=== PATIENT | female | born 1975 | race Caucasian/White ===

== ENCOUNTER → 2016-12-02 | Outpatient (CLI) | payer OTHER ==
[~2016-12-02] MED LIST: NO REGULAR MEDS
== END ==
LOC: NEU 09:05
PROVIDERS: ATTEND Nurse Practitioner Family
DX: G56.03 Carpal tunnel syndrome, bilateral upper limbs (principal)
CPT/HCPCS: 95886; 95911

== ENCOUNTER 2016-12-14 17:11 | Emergency (ER) | payer OTHER ==
[~2016-12-14] VITALS: Ht 157.5 cm; Wt 130.2 kg
[~2016-12-14 17:11] MED LIST changes: +ACET-2723 PO; +CITA40TA6 PO; +HUM10VIA3 SQ; +LEVO75TA10 PO; +LISI10TA7 PO; +NAPR220T61 PO; +SIMV20TA6 PO; +UBID100C10 PO
[2016-12-14 17:13] VITALS: Ht 157.5 cm; Wt 130.2 kg
--- OUTSIDE RECORDS SUMMARY | 2016-12-14 17:15 | XMS REPORT ---
Author Author Evelyn Sommers Organization [employer] Address Unknown Phone Unavailable Care Team Providers Care Planning Director Name Role Phone Evelyn Sommers CP Unavailable Allergies No Known Allergies Problems Problem Type Condition Code Onset Dates Condition Status Assessment Mixed hyperlipidemia E78.2 Active Assessment Hypothyroidism, unspecified E03.9 Active Problem Type 2 diabetes mellitus without complications E11.9 Active Problem Depressive disorder, not elsewhere classified 311 Active Problem Other specified diabetes mellitus without complications E13.9 Active Problem DM w/o complication type II E11.9 Active Assessment DM w/o complication type II, uncontrolled E11.65 Active Problem Allergic rhinitis 477.9 Active Problem Hypothyroidism E03.9 Active Medications Medication Code System Code Instructions Start Date End Date Status Dosage Fish Oil + D3 [facility] [address] . Orally Once a a day 1 capsule Humalog Mix 75/25 [facility] [address]-81 (75-25) 100 UNIT/ML Subcutaneous March 11, 2016 as directed Citalopram Hydrobromide [facility] [address]-41 40 MG Orally Once a day Aug 13, 2015 1 tablet Tylenol 8 Hour [facility] [address]-35 500 mg Orally BID prn 2 pills AM & PM Loratadine [facility] [address]-59 10 MG Orally Once a day 1 tablet in the morning GlipiZIDE [facility] 42253757215 5 TAKE ONE TABLET BY MOUTH TWICE A DAY Lisinopril [facility] [address]-64 10 MG Orally Once a day 1 tablet in the morning Levothyroxine Sodium [facility] [address]-53 75 MCG Orally Once a day Jun 07, 2015 1 tablet on an empty stomach in the morning Procedures Procedure Coding System Code Date COMPREHENSIVE METABOLIC PANEL CPT-4 70742 Jun 22, 2016 LIPID PANEL CPT-4 40278 Jun 22, 2016 HEMOGLOBIN A1C, IN HOUSE CPT-4 53077 Jun 22, 2016 T4 FREE CPT-4 89364 Jun 22, 2016 TSH CPT-4 55614 Jun 22, 2016 Results No Known Results Summary Purpose [employer] Submission
--- OUTSIDE RECORDS SUMMARY | 2016-12-14 17:15 | XMS REPORT ---
Author Surekha Cutler [employer] Address Unknown Phone Unavailable Care Team Providers Care Page Makeup System Operator Name Role Phone Surekha Álvarez CP Unavailable Allergies, Adverse Reactions, Alerts Substance Reaction Event Type Sulfa hives Drug Allergy latex rash Non Drug Allergy Problems Problem Type Condition Code Onset Dates Condition Status Problem Depressive disorder, not elsewhere classified 311 Active Problem Allergic rhinitis 477.9 Active Problem Diabetes Mellitus Type 2, not stated as uncontrolled 250.00 Active Assessment Hypothyroidism, unspecified E03.9 Active Problem Hypothyroid 244.9 Active Assessment Diabetes Mellitus Type 2, not stated as uncontrolled 250.00 Active Medications Medication Code System Code Instructions Start Date End Date Status Dosage Tylenol 8 Hour [facility] [address]-99 500 mg Orally BID 2 pills AM & PM Levothyroxine Sodium [facility] [address]-25 75 MCG Orally Once a day Jun 07, 2015 1 tablet on an empty stomach in the morning Loratadine [facility] [address]-88 10 MG Orally Once a day 1 tablet in the morning Lisinopril [facility] [address]-87 10 MG Orally Once a day 1 tablet in the morning Tradjenta [facility] [address]-39 5 MG Orally Once a day May 08, 2015 1 tablet Levemir Flexpen [facility] [address]-91 100 UNIT/ML Subcutaneous at Jun 07, 2015 10 units for a week then 15 units Citalopram & Diet Manage Prod NDC 0 10 MG Orally once a day 40 mg Procedures Procedure Coding System Code Date OFFICE VISIT, EST-LOW COMPLEXITY (15 MIN.) CPT-4 29903 Jun 06, 2015 HEMOGLOBIN A1C, IN HOUSE CPT-4 71906 Jun 06, 2015 Vital Signs Date/Time: Jun 06, 2015 Height 61 in Weight 258 lbs Temperature 98.7 F Blood Pressure Diastolic 80 mm Hg Blood Pressure Systolic 124 mm Hg Cardiac Monitoring Heart Rate 88 /min BMI 48.74 Index Respiratory Rate 20 /min Results Name Result Date Reference Range Unit Abnormality Flag In House HB A1c Summary Purpose [employer] Submission
--- OUTSIDE RECORDS SUMMARY | 2016-12-14 17:15 | XMS REPORT ---
Author Author Janina Carrillo Organization [employer] Address Unknown Phone Unavailable Care Team Providers Care Harvest Supervisor Name Role Phone Janina Carrillo CP Unavailable Allergies, Adverse Reactions, Alerts Substance Reaction Event Type Sulfa hives Drug Allergy Problems Problem Type Condition ICD-9 Code Onset Dates Condition Status Problem Depressive disorder, not elsewhere classified 311 Active Problem Allergic rhinitis 477.9 Active Problem Diabetes Mellitus Type 2, not stated as uncontrolled 250.00 Active Problem Hypothyroid 244.9 Active Assessment Diabetes Mellitus Type 2, not stated as uncontrolled 250.00 Active Medications Medication Code System Code Instructions Start Date End Date Status Dosage Tylenol 8 Hour [facility] [address]-03 500 mg Orally BID 2 pills AM & PM Citalopram & Diet Manage Prod NDC 0 10 MG Orally once a day 40 mg immodium NDC 0 Oral 6 per day 1 tab Diflucan [facility] [address]-26 150 MG Orally Once a day January 31, 2015 February 01, 2015 1 tablet Loratadine [facility] [address]-61 10 MG Orally Once a day 1 tablet in the morning [place]alimar Thyroid [facility] [address]-52 60 MG Orally Once a day 1 tablet in the morning Lisinopril [facility] [address]-05 10 MG Orally Once a day 1 tablet in the morning Metformin HCl [facility] [address]-53 500 MG Orally Twice a day January 31, 2015 2 tablet with meals Procedures Procedure Coding System Code Date OFFICE VISIT, EST-LOW COMPLEXITY (15 MIN.) CPT-4 59002 February 18, 2015 GLUCOSE FINGERSTICK, IN HOUSE CPT-4 61525 February 18, 2015 Vital Signs Date/Time: February 18, 2015 Height 61 in Weight 254.5 lbs Temperature 98.6 F Blood Pressure Diastolic 78 mm Hg Blood Pressure Systolic 124 mm Hg Cardiac Monitoring Heart Rate 72 /min BMI 48.08 Index Respiratory Rate 16 /min Results Name Result Date Reference Range Unit Abnormality Flag In House Hemocue Glucose Analysis, fingerstick Summary Purpose [employer] Submission
--- OUTSIDE RECORDS SUMMARY | 2016-12-14 17:15 | XMS REPORT ---
Author Author Evelyn Sommers Organization [employer] Address Unknown Phone Unavailable Care Team Providers Care Fur Finisher Tailor Name Role Phone Evelyn Sommers CP Unavailable Allergies No Known Allergies Problems Problem Type Condition Code Onset Dates Condition Status Problem Depressive disorder, not elsewhere classified 311 Active Problem Allergic rhinitis 477.9 Active Problem Type 2 diabetes mellitus without complications E11.9 Active Problem Hypothyroidism E03.9 Active Problem DM w/o complication type II E11.9 Active Medications No Known Medications Results No Known Results Summary Purpose [employer] Submission
--- OUTSIDE RECORDS SUMMARY | 2016-12-14 17:15 | XMS REPORT ---
Author Author Surekha Álvarez [facility] e[employer] Address Unknown Phone Unavailable Care Team Providers Care Dairy Nutritionist Name Role Phone Surekha Álvarez Unavailable Allergies No Known Allergies Problems Problem Type Condition Code Onset Dates Condition Status Problem Depressive disorder, not elsewhere classified 311 Active Problem Allergic rhinitis 477.9 Active Problem Diabetes Mellitus Type 2, not stated as uncontrolled 250.00 Active Problem Hypothyroid 244.9 Active Medications Medication Code System Code Instructions Start Date End Date Status Dosage Lisinopril [facility] [address]-14 10 MG Orally Once a day 1 tablet in the morning Results No Known Results Summary Purpose [employer]Works Submission
--- OUTSIDE RECORDS SUMMARY | 2016-12-14 17:15 | XMS REPORT ---
Author Author Janina Carrillo Organization [employer] Address Unknown Phone Unavailable Care Team Providers Care Cash Person Name Role Phone Janina Carrillo CP Unavailable Allergies No Known Allergies Problems Problem Type Condition ICD-9 Code Onset Dates Condition Status Problem Depressive disorder, not elsewhere classified 311 Active Problem Allergic rhinitis 477.9 Active Problem Diabetes Mellitus Type 2, not stated as uncontrolled 250.00 Active Problem Hypothyroid 244.9 Active Medications No Known Medications Results No Known Results Summary Purpose [employer] Submission
--- OUTSIDE RECORDS SUMMARY | 2016-12-14 17:15 | XMS REPORT ---
Author Author Evelyn Sommers [facility] [employer] Address Unknown Phone Unavailable Care Team Providers Care Assisted Living Home Director Name Role Phone Evleyn Sommers Unavailable Allergies, Adverse Reactions, Alerts Substance Reaction Event Type Sulfa hives Drug Allergy latex rash Non Drug Allergy Problems Problem Type Condition Code Onset Dates Condition Status Problem Depressive disorder, not elsewhere classified 311 Active Problem Allergic rhinitis 477.9 Active Problem Type 2 diabetes mellitus without complications E11.9 Active Assessment DM w/o complication type II E11.9 Active Problem Hypothyroidism E03.9 Active Problem DM w/o complication type II E11.9 Active Medications Medication Code System Code Instructions Start Date End Date Status Dosage Loratadine [facility] [address]-83 10 MG Orally Once a day 1 tablet in the morning Citalopram Hydrobromide [facility] [address]-62 40 MG Orally Once a day Aug 13, 2015 1 tablet Lisinopril [facility] [address]-17 10 MG Orally Once a day 1 tablet in the morning Levothyroxine Sodium [facility] [address]-51 75 MCG Orally Once a day Jun 07, 2015 1 tablet on an empty stomach in the morning GlipiZIDE [facility] 72304348829 5 TAKE ONE TABLET BY MOUTH TWICE A DAY Fish Oil + D3 [facility] [address] . Orally Once a a day 1 capsule Humalog Mix 75/25 [facility] [address]-84 (75-25) 100 UNIT/ML Subcutaneous twice a day March 11, 2016 10 units, increase by 1 unit per dose per day until fasting is 130 and 2 hr PP is 180 Tylenol 8 Hour [facility] [address]-60 500 mg Orally BID prn 2 pills AM & PM Procedures Procedure Coding System Code Date OFFICE VISIT, EST-LOW COMPLEXITY (15 MIN.) CPT-4 19051 March 25, 2016 Vital Signs Date/Time: March 25, 2016 Temperature 98.3 F Height 61 in Weight 260 lbs Blood Pressure Diastolic 90 mm Hg Blood Pressure Systolic 130 mm Hg Cardiac Monitoring Heart Rate 80 /min BMI 49.12 Index Respiratory Rate 16 /min Results No Known Results Summary Purpose [employer]Works Submission
--- OUTSIDE RECORDS SUMMARY | 2016-12-14 17:15 | XMS REPORT ---
Author Author Janina Carrillo Organization [employer] Address Unknown Phone Unavailable Care Team Providers Care Hr Administrator Name Role Phone Janina Carrillo CP Unavailable Allergies, Adverse Reactions, Alerts Substance Reaction Event Type Sulfa hives Drug Allergy Problems Problem Type Condition ICD-9 Code Onset Dates Condition Status Problem Depressive disorder, not elsewhere classified 311 Active Problem Allergic rhinitis 477.9 Active Problem Diabetes Mellitus Type 2, not stated as uncontrolled 250.00 Active Assessment Diabetes Mellitus Type 2, not stated as uncontrolled 250.00 Active Assessment Unspecified vaginitis and vulvovaginitis 616.10 Active Problem Hypothyroid 244.9 Active Assessment Dysuria 788.1 Active Medications Medication Code System Code Instructions Start Date End Date Status Dosage Metformin HCl [facility] [address]-04 500 MG Orally Twice a day January 31, 2015 2 tablet with meals [place] Thyroid [facility] [address]-67 60 MG Orally Once a day 1 tablet in the morning Lisinopril [facility] [address]-82 10 MG Orally Once a day 1 tablet in the morning Loratadine [facility] [address]-90 10 MG Orally Once a day 1 tablet in the morning Tylenol 8 Hour [facility] [address]-61 500 mg Orally BID 2 pills AM & PM Citalopram & Diet Manage Prod NDC 0 10 MG Orally once a day 40 mg Diflucan [facility] [address]-08 150 MG Orally Once a day January 31, 2015 1 tablet Procedures Procedure Coding System Code Date OFFICE VISIT, CHAIR SPRINGER-LOW COMPLEXITY (30 MIN.) CPT-4 04068 January 31, 2015 Results No Known Results Summary Purpose [employer]Works Submission
--- OUTSIDE RECORDS SUMMARY | 2016-12-14 17:15 | XMS REPORT ---
Author Author Janina Carrillo Organization [employer] Address Unknown Phone Unavailable Care Team Providers Care Skein Inspector Name Role Phone Janina Carrillo CP Unavailable Allergies No Known Allergies Problems Problem Type Condition ICD-9 Code Onset Dates Condition Status Problem Depressive disorder, not elsewhere classified 311 Active Problem Allergic rhinitis 477.9 Active Problem Diabetes Mellitus Type 2, not stated as uncontrolled 250.00 Active Problem Hypothyroid 244.9 Active Medications Medication Code System Code Instructions Start Date End Date Status Dosage Yannaa [facility] [address]-90 5 MG Orally Once a day May 08, 2015 1 tablet Results No Known Results Summary Purpose [employer]Works Submission
--- OUTSIDE RECORDS SUMMARY | 2016-12-14 17:15 | XMS REPORT ---
Author Author Evelyn Sommers Organization [employer] Address Unknown Phone Unavailable Care Team Providers Care Polymer Scientist Name Role Phone Evelyn Sommers CP Unavailable [...]
--- OUTSIDE RECORDS SUMMARY | 2016-12-14 17:15 | XMS REPORT ---
Author Author Evelyn Sommers Organization [facility] Address [address] [place] [address] Care Team Providers Care Batchmaker Name Role Phone Evelyn Sommers Unavailable [phone] PROBLEMS Type Condition ICD9-CM Code [id number] Code Onset Dates Condition Status SNOMED Code Problem Other specified diabetes mellitus without complications E13.9 Active 236400520 Problem Type 2 diabetes mellitus without complications E11.9 Active 743640536 Problem Hypothyroidism E03.9 Active 45948051 Problem DM w/o complication type II E11.9 Active 85992341 Problem Depressive disorder, not elsewhere classified 311 Active 19853782 Problem Allergic rhinitis 477.9 Active 70014434 ALLERGIES Unknown Allergies SOCIAL HISTORY No smoking Hx information available PLAN OF CARE VITAL SIGNS MEDICATIONS Medication Instructions Dosage Frequency Start Date End Date Duration Status Lisinopril 10 MG Orally Once a day 1 tablet in the morning 24h 14 days Active RESULTS No Results PROCEDURES No Known procedures IMMUNIZATIONS No Known Immunizations
--- OUTSIDE RECORDS SUMMARY | 2016-12-14 17:15 | XMS REPORT ---
Author Author Evelyn Sommers Organization [employer] Address Unknown Phone Unavailable Care Team Providers Care Commander [employer] Name Role Phone Evelyn Sommers CP Unavailable [...]
--- OUTSIDE RECORDS SUMMARY | 2016-12-14 17:15 | XMS REPORT ---
Author Author Janina Carrillo [employer] Address Unknown Phone Unavailable Care Team Providers Care Hand Riveter Name Role Phone Janina Carrillo CP Unavailable Allergies, Adverse Reactions, Alerts Substance Reaction Event Type Sulfa hives Drug Allergy Problems Problem Type Condition ICD-9 Code Onset Dates Condition Status Assessment Hypothyroid 244.9 Active Assessment Screening for lipoid disorders V77.91 Active Problem Depressive disorder, not elsewhere classified 311 Active Problem Allergic rhinitis 477.9 Active Problem Diabetes Mellitus Type 2, not stated as uncontrolled 250.00 Active Assessment Depressive disorder, not elsewhere classified 311 Active Assessment Allergic rhinitis 477.9 Active Problem Hypothyroid 244.9 Active Assessment Diabetes Mellitus Type 2, not stated as uncontrolled 250.00 Active Medications Medication Code System Code Instructions Start Date End Date Status Dosage Tylenol [address] [facility] [address]-19 500 mg Orally BID 2 pills AM & PM Victoza [facility] [address]-56 18 MG/3ML Subcutaneous Once a day Apr 11, 2015 Aug 09, 2015 1.2 mg immodium NDC 0 Oral 6 per day 1 tab Citalopram & Diet Manage Prod NDC 0 10 MG Orally once a day 40 mg Lisinopril [facility] [address]-85 10 MG Orally Once a day 1 tablet in the morning Loratadine [facility] [address]-32 10 MG Orally Once a day 1 tablet in the morning [place] Thyroid [facility] [address]-12 60 MG Orally Once a day 1 tablet in the morning Procedures Procedure Coding System Code Date COMPLETE CBC W/AUTO DIFF WBC CPT-4 46938 Apr 11, 2015 IH CMP CPT-4 86225 Apr 11, 2015 GLUCOSE FINGERSTICK, IN HOUSE CPT-4 94581 Apr 11, 2015 TSH CPT-4 29870 Apr 11, 2015 LIPID PANEL CPT-4 78986 Apr 11, 2015 OFFICE VISIT, EST-MOD. COMPLEXITY (25 MIN) CPT-4 46373 Apr 11, 2015 Vital Signs Date/Time: Apr 11, 2015 Height 61 in Weight 261.4 lbs Temperature 98.7 F Blood Pressure Diastolic 78 mm Hg Blood Pressure Systolic 108 mm Hg Cardiac Monitoring Heart Rate 70 /min BMI 49.39 Index Respiratory Rate 16 /min Results No Known Results Summary Purpose eClinicalWorks Submission
--- OUTSIDE RECORDS SUMMARY | 2016-12-14 17:15 | XMS REPORT ---
Author Author Janina Carrillo Organization [employer] Address Unknown Phone Unavailable Care Team Providers Care Manager Military Name Role Phone Janina Carrillo CP Unavailable Allergies No Known Allergies Problems Problem Type Condition Code Onset Dates Condition Status Problem Depressive disorder, not elsewhere classified 311 Active Problem Allergic rhinitis 477.9 Active Problem Diabetes Mellitus Type 2, not stated as uncontrolled 250.00 Active Problem Hypothyroid 244.9 Active Medications Medication Code System Code Instructions Start Date End Date Status Dosage GlipiZIDE [facility] [address]-18 5 MG Orally BID Jun 17, 2015 1 tablet Results No Known Results Summary Purpose eClinicalWorks Submission
--- OUTSIDE RECORDS SUMMARY | 2016-12-14 17:15 | XMS REPORT ---
Author Author Janina Carrillo Organization [employer] Address Unknown Phone Unavailable Care Team Providers Care Photographic Double Name Role Phone Janina Carrillo CP Unavailable Allergies No Known Allergies Problems Problem Type Condition Code Onset Dates Condition Status Problem Depressive disorder, not elsewhere classified 311 Active Problem Allergic rhinitis 477.9 Active Problem Diabetes Mellitus Type 2, not stated as uncontrolled 250.00 Active Problem Hypothyroid 244.9 Active Medications Medication Code System Code Instructions Start Date End Date Status Dosage Citalopram Hydrobromide [facility] [address]-41 40 MG Orally Once a day Aug 13, 2015 1 tablet Results No Known Results Summary Purpose eClinicalWorks Submission
--- OUTSIDE RECORDS SUMMARY | 2016-12-14 17:16 | XMS REPORT ---
Author Author Evelyn Sommers Organization [employer] Address Unknown Phone Unavailable Care Team Providers Care Concentrator Operator Name Role Phone Evelyn Sommers CP Unavailable Allergies, Adverse Reactions, Alerts Substance [...] End Date Status Dosage Tylenol 8 Hour [facility] [address]-57 500 mg Orally BID 2 pills AM & PM Loratadine [facility] [address]-68 10 MG Orally Once a day 1 tablet in the morning Lisinopril [facility] [address]-11 10 MG Orally Once a day 1 tablet in the morning Citalopram Hydrobromide [facility] [address]-90 40 MG Orally Once a day Aug 13, 2015 1 tablet Levothyroxine Sodium [facility] [address]-48 75 MCG Orally Once a day Jun 07, 2015 1 tablet on an empty stomach in the morning GlipiZIDE [facility] 03143080445 5 TAKE ONE TABLET BY MOUTH TWICE A DAY Humalog Mix 75/25 [facility] [address]-39 (75-25) 100 UNIT/ML Subcutaneous twice a day March 11, 2016 10 units Procedures Procedure Coding System Code Date OFFICE VISIT, EST-LOW COMPLEXITY (15 MIN.) CPT-4 08228 March 11, 2016 Vital Signs Date/Time: March 11, 2016 Temperature 98.6 F Height 61 in Weight 263.0 lbs Blood Pressure Diastolic 62 mm Hg Blood Pressure Systolic 110 mm Hg Cardiac Monitoring Heart Rate 84 /min BMI 49.69 Index Oximetry 98 % Results No Known Results Summary Purpose eClinicalWorks Submission
--- NOTE | 2016-12-14 17:24 | ERPDOC ---
Departure Disposition Decision Date: Dec 14, 2016 Disposition Decision Time: 18:48 (SLAVA HARDY MD) Disposition: 01 DISCHARGED HOME, SELF-CARE Impression Impression (HAILEE AJ MD) Impression: Primary Impression: Fluid overload Hypervolemia type: unspecified Qualified Codes: E87.70 - Fluid overload, unspecified Additional Impressions: Chest pain Chest pain type: other chest pain Qualified Codes: R07.89 - Other chest pain Lower extremity edema Laterality: bilateral Qualified Codes: R60.0 - Localized edema Severity: Moderate (SLAVA HARDY MD) Condition: Improved Seen By: Physician only (SLAVA HARDY MD) Referrals: [facility]CO ARREGUIN APRN (Family) Patient Instructions: Leg Edema (ED) Problems/Meds/Labs Reviewed?: Yes Medications reviewed and manag: Yes (SLAVA HARDY MD) Additional Instructions: Lasix 20 mg, one tablet daily for 5 days. Call tomorrow to get an appointment this [facility] at [facility] for recheck May use Tylenol and/or ibuprofen as needed for pain Follow up care ordered?: Yes Mental Status: Alert (SLAVA HARDY MD) Scripts Furosemide (Lasix) 20 Mg Tablet 1 TAB PO DAILY, #5 TAB Prov: SLAVA HARDY MD 12/14/16 HPI - General Medical General Chief Complaint: Chest Pain Stated Complaint: ABNORMAL EKG/CHEST PAIN Time Seen by Provider: 17:23 Source: patient Exam Limitations: no limitations (HAILEE AJ MD) Time Seen by Provider: 18:01 (SLAVA HARDY MD) HPI - General Medical Initial Comments Patient is a 41-year-old female presents emergency room for evaluation of chest discomfort weakness. Patient history of hypertension, questionable hypercholesteremia, type II diabetes, no cardiac history nonsmoker no family history. Patient sent over from [place], has been feeling generally weak and short of breath with bilateral lower extremity swelling for the past 4-5 days. Also complaining of intermittent chest pain left-sided worse with inspiration. Patient's general complaint is just the weakness. [facility] who felt it would be more appropriate for patient to be evaluated in the emergency department. Occurred At: home Onset: Gradual Duration: 1 week Pain Scale: Now & Worst: 5/10 (HAILEE AJ MD) Allergies: Coded Allergies: No Known Drug Allergies (Unverified Allergy, Unknown, 12/14/16) Past History Past Medical History Metabolic: diabetes, hypercholesterolemia, hypertension, DENIES: hypothyroidism Cardiac: DENIES: A-fib, CAD, CHF, HI Respiratory: DENIES: COPD, asthma GI: DENIES: ulcers Female: DENIES: UTI, kidney stones (HAILEE AJ MD) Surgical History General: DENIES: appendix Cardiac: DENIES: cardiac bypass, cardiac cath (HAILEE AJ MD) Vaccines Hx Influenza Vaccination: Yes (FALL 2015) Hx Pneumococcal Vaccination: Yes (POSSIBLY) (HAILEE AJ MD) Social History Smoking Status: Never smoker Substance Use Type: does not use (HAILEE AJ MD) Review of Systems Constitutional Constitutional: appetite decrease, weakness, DENIES: chills, dizziness, fever ( HAILEE AJ MD) Eyes Vision: DENIES: double vision, loss of visual whitehead (HAILEE AJ MD) ENMT Sinuses: DENIES: congestion, rhinorrhea Mouth/Throat: DENIES: scratchy throat, sore throat (HAILEE AJ MD) Cardiovascular Cardiac: chest pain, DENIES: dyspnea on exertion (HAILEE AJ MD) Pulmonary Respiratory: pleuritic chest pain, DENIES: cough, dyspnea, sputum, tachypnea ( HAILEE AJ MD) GI Upper Abdomen: DENIES: nausea, pain, vomiting Lower Abdomen: DENIES: constipation, diarrhea, pain (HAILEE AJ MD) General: DENIES: frequency, urgency (HAILEE AJ MD) Musculoskeletal General: weakness (generalized nonspecific), DENIES: cramps, pain (HAILEE AJ MD) Integumentary Skin: DENIES: color change, itching, rash (HAILEE AJ MD) Endocrine Endocrine: DENIES: heat/cold intolerance (HAILEE AJ MD) Hematologic/Lymphatic Hematologic/Lymphatic: DENIES: anemia (HAILEE AJ MD) Physical Exam General General Nourishment: well nourished, well developed, obese General Body Habitus: well groomed (HAILEE AJ MD) Vitals and Pain First Documented Vital Signs Date Time Temp Pulse Resp B/P Pulse Ox O2 Delivery O2 Flow Rate FiO2 12/14/16 17:13 98.4 66 20 148/65 93 Room Air (SLAVA HARDY MD) Vitals and Pain Weight: Kilograms: Height (feet): Height (inches): Triage Pain Scale: (HAILEE AJ MD) RN VS reviewed by Provider: Yes (HAILEE AJ MD) Eyes (brief) Eyes Brief: found: EOMI (HAILEE AJ MD) ENMT (brief) ENMT Brief: FOUND: mucosa moist, normal dentition, NOT FOUND: nasal erythema, pharnyx erythema, tonsillar deviation (HAILEE AJ MD) Neck (brief) Neck: NOT FOUND: adenopathy, spasm, tenderness (HAILEE AJ MD) Respiratory (brief) Respiratory: FOUND: clear all whitehead, equal bilaterally, NOT FOUND: rales, wheezes (HAILEE AJ MD) Cardiovascular (brief) Cardiac: FOUND: regular rate, regular rhythm Capillary Refill: <2 sec (HAILEE AJ MD) Abdomen (brief) Abdominal Brief: FOUND: bowel normo active x4, soft, NOT FOUND: tender (HAILEE AJ MD) Lymphatic (brief) Lymphatic Brief: NOT FOUND: adenopathy (HAILEE AJ MD) Musculoskeletal (brief) Musculoskeletal Brief: NOT FOUND: spasm, tenderness (HAILEE AJ MD) Integumentary (brief) Integumentary Brief: FOUND: dry, pink, warm, NOT FOUND: rash (HAILEE AJ MD) Neurologic (brief) Neurological Brief: FOUND: CN w/o gross def to obs, motor-no gross deficits, sensory-no gross deficits (HAILEE AJ MD) Psychiatric (brief) Psychiatric Brief: FOUND: alert, oriented (HAILEE AJ MD) Differential Diagnoses Considering: Acute HI, Hypo/Hyperglycemia, Hypo/Hyperkalemia, Hypo/ Hypernatremia, Medication Effect, Meningitis, Metabolic, Pneumonia, UTI (HAILEE AJ MD) Progress Results/Orders Orders Procedure Category Date Status Time EKG EKG 12/14/16 Taken 17:17 Cbc W/Auto LAB 12/14/16 Complete Diff-Reflex Manual 17:29 Cmp - Comprehensive LAB 12/14/16 Complete Metabolic 17:29 Probnp LAB 12/14/16 Complete 17:29 Troponin I W LAB 12/14/16 Complete Hemolysis Index 17:29 Ua, Dip Wreflex LAB 12/14/16 Complete Microsc & Churn Operator 17:29 D-Dimer LAB 12/14/16 Complete 17:29 Tsh - Thyroid Stim LAB 12/14/16 Complete Hormone 17:29 Magnesium LAB 12/14/16 Complete 17:29 Chest, Pa & Lateral RAD 12/14/16 Taken 17:29 Iv Lock (Ed Only) EDM 12/14/16 Transmitted 17:29 Aspirin (Asa) PHA 12/14/16 Complete 17:30 Normal Saline (Normal PHA 12/14/16 Complete Saline Iv) 17:30 Ketorolac (Toradol) PHA 12/14/16 Verified 18:45 Orphenadrine (Norflex) PHA 12/14/16 Verified 18:45 Furosemide (Lasix) PHA 12/14/16 Verified 18:45 (SLAVA HARDY MD) Lab Results Laboratory Tests Test 12/14/16 17:37 12/14/16 17:50 White Blood Count 9.7T/MM3 Red Blood Count 4.17M/MM3 Hemoglobin 12.4GM/DL Hematocrit 38.0% Mean Corpuscular Volume 91.1UM3 Mean Corpuscular Hemoglobin 29.7UUG Mean Corpuscular Hemoglobin Concent 32.6GM/DL RDW Standard Deviation 44.7FL Platelet Count 247T/MM3 Mean Platelet Volume 8.7UM3 Immature Granulocyte % (Auto) 0.2% Neutrophils (%) (Auto) 68.2% Lymphocytes (%) (Auto) 23.4% Monocytes (%) (Auto) 5.2% Eosinophils (%) (Auto) 2.8% Basophils (%) (Auto) 0.2% Absolute Immature Granulocyte (auto 0.02T/MM3 Absolute Neutrophils (auto) 6.6T/MM3 Absolute Lymphocytes (auto) 2.3T/MM3 Absolute Monocytes (auto) 0.5T/MM3 Absolute Eosinophils (auto) 0.3T/MM3 Absolute Basophils (auto) 0.0T/MM3 D-Dimer 164NG/ML Turbidity < 20 Sodium Level 145MEQ/L Potassium Level 4.1MEQ/L Chloride Level 103MEQ/L Carbon Dioxide Level 30MEQ/L Anion Gap 12MEQ/L Blood Urea Nitrogen 9.0MG/DL Creatinine 0.5MG/DL Glomerular Filtration Rate Calc 136 BUN/Creatinine Ratio 18RATIO Glucose Level 176MG/DL Calculated Osmolality 282MOSM/KG Calcium Level 9.2MG/DL Magnesium Level 2.0MG/DL Total Bilirubin 0.50MG/DL Icterus Index < 2 Aspartate Amino Transf (AST/SGOT) 15U/L Alanine Aminotransferase (ALT/SGPT) 27U/L Alkaline Phosphatase 63U/L Troponin I < 0.012ng/ml CH-Eex-S-Type Natriuretic Peptide 108PG/ML Total Protein 7.5G/DL Albumin 3.9G/DL Globulin 3.6G/DL Albumin/Globulin Ratio 1.1RATIO Thyroid Stimulating Hormone (TSH) 1.38MIU/L Chemistry Specimen Hemolysis < 15 Urine Collection Type Voided-not cc-midstr Urine Color Yellow Urine Turbidity Clear Urine pH 6.0 Urine Specific [place] 1.020 Urine Protein Negative Urine Glucose (UA) Trace Urine Ketones Negative Urine Blood Negative Urine Nitrite Negative Urine Bilirubin Negative Urine Urobilinogen 0.2EU/DL Urine Leukocyte Esterase Negative Urinalysis Comment Microscopic not ind. (SLAVA HARDY MD) Lab Results Laboratory Tests Test 12/14/16 17:37 12/14/16 17:50 White Blood Count 9.7T/MM3 Red Blood Count 4.17M/MM3 Hemoglobin 12.4GM/DL Hematocrit 38.0% Mean Corpuscular Volume 91.1UM3 Mean Corpuscular Hemoglobin 29.7UUG Mean Corpuscular Hemoglobin Concent 32.6GM/DL RDW Standard Deviation 44.7FL Platelet Count 247T/MM3 Mean Platelet Volume 8.7UM3 Immature Granulocyte % (Auto) 0.2% Neutrophils (%) (Auto) 68.2% Lymphocytes (%) (Auto) 23.4% Monocytes (%) (Auto) 5.2% Eosinophils (%) (Auto) 2.8% Basophils (%) (Auto) 0.2% Absolute Immature Granulocyte (auto 0.02T/MM3 Absolute Neutrophils (auto) 6.6T/MM3 Absolute Lymphocytes (auto) 2.3T/MM3 Absolute Monocytes (auto) 0.5T/MM3 Absolute Eosinophils (auto) 0.3T/MM3 Absolute Basophils (auto) 0.0T/MM3 D-Dimer 164NG/ML Turbidity < 20 Sodium Level 145MEQ/L Potassium Level 4.1MEQ/L Chloride Level 103MEQ/L Carbon Dioxide Level 30MEQ/L Anion Gap 12MEQ/L Blood Urea Nitrogen 9.0MG/DL Creatinine 0.5MG/DL Glomerular Filtration Rate Calc 136 BUN/Creatinine Ratio 18RATIO Glucose Level 176MG/DL Calculated Osmolality 282MOSM/KG Calcium Level 9.2MG/DL Magnesium Level 2.0MG/DL Total Bilirubin 0.50MG/DL Icterus Index < 2 Aspartate Amino Transf (AST/SGOT) 15U/L Alanine Aminotransferase (ALT/SGPT) 27U/L Alkaline Phosphatase 63U/L Troponin I < 0.012ng/ml ZQ-Aum-G-Type Natriuretic Peptide 108PG/ML Total Protein 7.5G/DL Albumin 3.9G/DL Globulin 3.6G/DL Albumin/Globulin Ratio 1.1RATIO Thyroid Stimulating Hormone (TSH) Pending Chemistry Specimen Hemolysis < 15 Urine Collection Type Voided-not cc-midstr Urine Color Yellow Urine Turbidity Clear Urine pH 6.0 Urine Specific [place] 1.020 Urine Protein Negative Urine Glucose (UA) Trace Urine Ketones Negative Urine Blood Negative Urine Nitrite Negative Urine Bilirubin Negative Urine Urobilinogen 0.2EU/DL Urine Leukocyte Esterase Negative Urinalysis Comment Microscopic not ind. (HAILEE AJ MD) Medications Current ED Medications Aspirin 324 mg 324 mg O ONCE PO Last administered on 12/14/16 17:30; Start at 17:30; Stop 12/14/16 at 17:31; Status DC Sodium Chloride (Normal Saline IV) 1,000 ml @ 999 mls/hr Q1H1M ONCE IV ; Start 12/14/16 at 17:30; Stop 12/14/16 at 18:30; Status DC (SLAVA HARDY MD) Medications Current ED Medications Aspirin 324 mg 324 mg O ONCE PO Last administered on 12/14/16 17:30; Start at 17:30; Stop 12/14/16 at 17:31; Status DC Sodium Chloride (Normal Saline IV) 1,000 ml @ 999 mls/hr Q1H1M ONCE IV ; Start 12/14/16 at 17:30; Stop 12/14/16 at 18:30 (HAILEE AJ MD) Progress Progress Rechecked the patient, she continues to have sharp aching left pectoral pain, and complaining of 2+ pitting edema to the lower extremities. Patient has had a 20 pound weight gain over the last several weeks him and was quite concerned about this. All of the patient's lab including CBC, CMP, troponin, proBNP, d-dimer are all normal/negative EKG shows a normal sinus rhythm without ischemia, ectopy, or infarction At this time patient is given medications, specifically Toradol and Norflex for pectoral pain, and started on Lasix given 40 mg IV in the ER, 20 mg daily for 5 days. [facility] (SLAVA HARDY MD) EKG EKG : Rate: 60-100 Rhythm: sinus [place]: normal QRS: non-specific block Intervals: normal ST/T: non-specific changes Interpreted by: signing physician (HAILEE AJ MD) HAILEE AJ MD Dec 14, 2016 17:24 SLAVA HARDY MD Dec 14, 2016 18:49
--- NOTE | 2016-12-14 17:26 | NUR ---
PHYSICIAN IN WITH PT
[2016-12-14] MEDS ORDERED: NORMAL SALINE 1,000 ML IV ONE (17:30)
[2016-12-14] MEDS ORDERED: ASPIRIN 81 MG CHEWABLE TABLET PO ONE (17:30)
[2016-12-14 17:43] LABS: BASOPHILS % (AUTO) 0.2 % (0-2); EOSINOPHILS # (AUTO) 0.3 T/MM3 (0-0.5); EOSINOPHILS % (AUTO) 2.8 % (0-4); HGB - HEMOGLOBIN 12.4 GM/DL (12-16); IMMATURE GRANULOCYTE # (AUTO) 0.02 T/MM3 (0.00-0.03); IMMATURE GRANULOCYTE % (AUTO) 0.2 % (0.0-0.5); LYMPHOCYTES # (AUTO) 2.3 T/MM3 (1-4.8); LYMPHOCYTES % (AUTO) 23.4 % (23-45); MEAN CORPUSCULAR HGB 29.7 UUG (26-34); MEAN CORPUSCULAR HGB CONC(MCHC 32.6 GM/DL (31-37); MEAN CORPUSCULAR VOLUME 91.1 UM3 (80-100); MEAN PLATELET VOLUME 8.7 UM3 (9.4-12.4); MONOCYTES # (AUTO) 0.5 T/MM3 (0-0.8); MONOCYTES % (AUTO) 5.2 % (0-9.0); NEUTROPHILS #(AUTO)-ABSOLUTE 6.6 T/MM3 (1.8-7.7); NEUTROPHILS % (AUTO) 68.2 % (33-66); RED BLOOD COUNT 4.17 M/MM3 (4.00-5.20); WBC - WHITE BLOOD COUNT 9.7 T/MM3 (4.5-11.0)
[2016-12-14] MEDS ORDERED: ACET-2890 PO (17:44)
[2016-12-14 17:54] LABS: BLOOD, URINE NEGATIVE (NEGATIVE); COLOR,URINE YELLOW (YELLOW); LEUKOCYTE ESTERASE ,URINE NEGATIVE (NEGATIVE); NITRITE,URINE NEGATIVE (NEGATIVE); UROBILINOGEN,URINE 0.2 EU/DL (NORMAL)
[2016-12-14 17:59] LABS: ALBUMIN 3.9 G/DL (3.5-5.0); ALBUMIN/GLOBULIN RATIO 1.1 RATIO (1.1-2.2); ALKALINE PHOSPHATASE 63 U/L (38-126); ALT (SGPT) 27 U/L (9-52); ANION GAP 12 MEQ/L (5-15); AST (SGOT) 15 U/L (14-36); BUN/CREATININE RATIO 18 RATIO (6-26); CALCIUM 9.2 MG/DL (8.4-10.2); CHLORIDE 103 MEQ/L (98-107); CO2 - CARBON DIOXIDE 30 MEQ/L (22-30); CREATININE 0.5 MG/DL (0.7-1.2); GLOMERULAR FILTRATION RATE 136; GLUCOSE 176 MG/DL (65-110); POTASSIUM 4.1 MEQ/L (3.6-5); SODIUM 145 MEQ/L (134-144); TOTAL PROTEIN 7.5 G/DL (6.3-8.2)
--- NOTE | 2016-12-14 18:03 | NUR ---
REPORT TO GANESH FERGUSON
[2016-12-14 18:11] LABS: PROBNP 108 PG/ML (0-175)
[2016-12-14 18:29] LABS: THYROID STIM HORMONE-TSH 1.38 MIU/L (0.47-4.68)
[2016-12-14] MEDS ORDERED: ORPHENADRINE 60mg/2ml INJECTION IV ONE (18:45)
[2016-12-14] MEDS ORDERED: FUROSEMIDE 40 MG/4 ML INJECTION IV ONE (18:45)
[2016-12-14] MEDS ORDERED: KETOROLAC 30mg/ml INJECTION IV ONE (18:45)
[2016-12-14] MEDS ORDERED: FURO-154 PO (18:49)
[2016-12-14 20:03] VITALS: BP 176/89; PULSE 62; RESP 20; TEMP 98.4; O2SAT 94
--- NOTE | 2016-12-14 20:03 | NUR ---
DISCHARGE PT GIVEN INSTRUCTIONS FOR CONT CARE OF LASIX AND LEG EDEMA W/ RX X1 OF LASIX. PT VERBALIZED UNDERSTANDING AND SIGNED FORM, PT LEFT ER AMBULATORY W/O ASSIST, ALERT, VS CHARTED W/ PAIN REDUCED TO 6/10
--- NOTE | 2016-12-15 08:08 | DI ---
INDICATION: ITS.REASON: chest pain PROCEDURE: CHEST 2-VIEWS UPRIGHT (PA \T\ LAT) Encounter: Initial COMPARISON: None FINDINGS: The lungs are mildly hypoinflated but grossly clear. There is no pleural effusion or pneumothorax. The heart size, mediastinal contours and pulmonary vascularity are within normal limits. There is no significant skeletal abnormality. IMPRESSION: No acute cardiopulmonary disease. .
== END 2016-12-14 20:03 | disposition home or self-care (01) ==
LOC: ED 17:11
DX: R07.89 Other chest pain (principal); R60.0 Localized edema; E87.70 Fluid overload, unspecified; I10 Essential (primary) hypertension; E11.9 Type 2 diabetes mellitus without complications; Z79.4 Long term (current) use of insulin
CPT/HCPCS: 80053; 81003; 83735; 83880; 84443; 84484; 85025; 85379; 93005

== ENCOUNTER 2017-01-01 05:40 | Day surgery (SDC) | payer OTHER ==
--- NOTE | 2016-12-14 09:51 | NUR ---
PMH, allergies, meds reviewed and documented. Preop and DOS instructions given including handout of Postop instructions for carpal tunnel release, Surgical Services pamphlet, and my contact information. CBC, BMP drawn today.
--- NOTE | 2016-12-31 09:10 | NUR ---
QUINTON SHAFFER NOTIFIED OF PATIENT GOING TO ER DECEMBER 21 2016 FOR CHEST PAIN, PATIENT STATES IT WAS DX FLUID OVERLOAD AND A PANIC ATTACK. SEE ER VISIT.
[~2017-01-01] VITALS: Ht 157.5 cm; Wt 129.7 kg
[~2017-01-01 05:40] MED LIST changes: -ACET-2723 PO; +ACET-2890 PO; -NO REGULAR MEDS; +OMEG300C PO
--- OUTSIDE RECORDS SUMMARY | 2017-01-01 05:45 | XMS REPORT | Continuity of Care Document ---
Author Author Organization Address Unknown Phone Unavailable Support Name Relationship Address Phone SLAVA HARDY MD Caregiver [address] [place] [address] Unavailable CUCO ARREGUIN APRN Caregiver [address] [place] [address] Unavailable ANAHI HAQUE Next Of Kin [address] [place] [address] Insurance Providers Guarantor Linda Haque Address [address] [place] [address] Email Payer [employer] Policy Number [id number] Subscriber's Name Linda Haque Relationship 18 Self Group Number [id number] Effective Date 10 Chief Complaint and Reason for Visit Chief Complaint Chest Pain Reason for Visit Lower extremity edema Chest pain Fluid overload Problems Past Problems Medical Problem Onset Date Chest pain Unknown Fluid overload Unknown Lower extremity edema Unknown Medications Current Home Medications Medication Dose Units Route Directions Days Qty Instructions Start Date Acetaminophen 650 Mg Tablet.er 1,300 Mg Oral Three Times A Day as needed for Pain 12/14/16 Citalopram Hydrobromide (Citalopram Hbr) 40 Mg Tablet 40 Mg Oral Daily 12/14/16 Furosemide (Lasix) 20 Mg Tablet 1 Tab Oral Daily 5 Tablet 12/14/16 Hum Insulin Nph/Reg Insulin Hm (Novolin 70-30 100 Unit/Ml Vial) 100 Unit/Ml Inj 70 Unit Sub-Q Twice Daily Insulin 12/14/16 Levothyroxine Sodium 75 Mcg Tablet 75 Mcg Oral Before Breakfast 12/14/16 Lisinopril 10 Mg Tablet 10 Mg Oral Daily 12/14/16 Naproxen Sodium (Aleve) 220 Mg Tablet 440 Mg Oral Twice Daily With Meals for Pain 12/14/16 Simvastatin 20 Mg Tablet 20 Mg Oral Daily 12/14/16 Ubidecarenone (Coq-10) 100 Mg Capsule 100 Mg Oral Daily 12/14/16 Social History Social History Problem Response Recorded Date/Time Onset Date Status Hx Substance Use No 12/14/2016 5:39pm Not Applicable Not Applicable Hx Alcohol Use No 12/14/2016 5:39pm Not Applicable Not Applicable Has the pt used tobacco in the last 12 months No 12/14/2016 9:22am Not Applicable Not Applicable Query Response Start Date Stop Date Smoking Status Never smoker Hospital Discharge Instructions No hospital discharge instructions. Plan of Care Discharge Date 12/14/16 8:03pm Disposition 01 DISCHARGED HOME, SELF-CARE Condition at Discharge Improved Instructions/Education Provided Leg Edema (ED) Prescriptions See Medication Section Referrals [facility]CO ARREGUIN APRN Address: [address] [place] [phone] Additional Instructions/Education Lasix 20 mg, one tablet daily for 5 days. Call tomorrow to get an appointment this week at [facility] for recheck May use Tylenol and/or ibuprofen as needed for pain Care Plan and Goals Physician Care Plan Problem: Peripheral edema, volume overload, pectoral muscular chest pain Goal: Follow up with primary care provider Instructions: Take medications and follow care plan as discussed/written Lasix 20 mg, one tablet daily for 5 days. Call tomorrow to get an appointment this week at [facility] for recheck May use Tylenol and/or ibuprofen as needed for pain Functional Status No functional status results. Allergies, Adverse Reactions, Alerts Allergen Type Severity Reaction Status Last Updated No Known Drug Allergies Allergy Unknown Active 12/14/16 Immunizations Query Response on File Recorded Date/Time Hx Influenza Vaccination Y fall 201512/14/16 9:22am Hx Pneumococcal Vaccination Y POSSIBLY 12/14/16 9:22am Hx Tetanus, Diptheria, Pertussis UNKNOWN 08/31/08 6:35am Hx Influenza Vaccination Y fall 201512/14/16 9:22am Hx Tetanus, Diptheria, Pertussis UNKNOWN 08/31/08 6:35am Vital Signs Acute Vital Signs Vital Response Date/Time Temperature (Fahrenheit) 98.4 deg F (96.8 - 99.1) 12/14/2016 8:03pm Temperature (Calculated Celsius) 36.42041 degrees C (36.0 - 37.3) 12/14/2016 8:03pm Pulse Rate (adult) 62 bpm (60 - 100) 12/14/2016 8:03pm Respiratory Rate 20 breaths/min (10 - 20) 12/14/2016 8:03pm O2 Sat by Pulse Oximetry 94 % (90 - 100) 12/14/2016 8:03pm Blood Pressure 176/89 mm Hg 12/14/2016 8:03pm Height (Feet) 5 feet 12/14/2016 5:13pm Height (Inches) 2.00 inches 12/14/2016 5:13pm Weight (Kilograms) 130.200 kg 12/14/2016 5:13pm Body Mass Index (BMI) 52.0 12/14/2016 5:13pm Results Laboratory Results Test Name Result Units Flags Reference Collection Date/Time Result Date/ Time Comments White Blood Count 9.7 T/MM3 4.5-11.0 12/14/2016 5:37pm 12/14/2016 5: 43pm Red Blood Count 4.17 M/MM3 4.00-5.20 12/14/2016 5:37pm 12/14/2016 5: 43pm Hemoglobin 12.4 GM/DL 12-16 12/14/2016 5:37pm 12/14/2016 5:43pm Hematocrit 38.0 % 36-46 12/14/2016 5:37pm 12/14/2016 5:43pm Mean Corpuscular Volume 91.1 UM3 80-100 12/14/2016 5:37pm 12/14/2016 5: 43pm Mean Corpuscular Hemoglobin 29.7 UUG 26-34 12/14/2016 5:37pm 2016 5:43pm Mean Corpuscular Hemoglobin Concent 32.6 GM/DL 31-37 12/14/2016 5:37pm 12/14/2016 5:43pm RDW Standard Deviation 44.7 FL 36.9-50.2 12/14/2016 5:37pm 12/14/2016 5 :43pm Platelet Count 247 T/MM3 130-400 12/14/2016 5:37pm 12/14/2016 5:43pm Mean Platelet Volume 8.7 UM3 L 9.4-12.4 12/14/2016 5:37pm 12/14/2016 5: 43pm Neutrophils (%) (Auto) 68.2 % H 33-66 12/14/2016 5:37pm 12/14/2016 5: 43pm Lymphocytes (%) (Auto) 23.4 % 23-45 12/14/2016 5:37pm 12/14/2016 5: 43pm Monocytes (%) (Auto) 5.2 % 0-9.0 12/14/2016 5:37pm 12/14/2016 5:43pm Eosinophils (%) (Auto) 2.8 % 0-4 12/14/2016 5:37pm 12/14/2016 5:43pm Basophils (%) (Auto) 0.2 % 0-2 12/14/2016 5:37pm 12/14/2016 5:43pm Immature Granulocyte % (Auto) 0.2 % 0.0-0.5 12/14/2016 5:37pm 2016 5:43pm Absolute Neutrophils (auto) 6.6 T/MM3 1.8-7.7 12/14/2016 5:37pm 2016 5:43pm Absolute Lymphocytes (auto) 2.3 T/MM3 1-4.8 12/14/2016 5:37pm 2016 5:43pm Absolute Monocytes (auto) 0.5 T/MM3 0-0.8 12/14/2016 5:37pm 12/14/2016 5:43pm Absolute Eosinophils (auto) 0.3 T/MM3 0-0.5 12/14/2016 5:37pm 2016 5:43pm Absolute Basophils (auto) 0.0 T/MM3 0-0.2 12/14/2016 5:37pm 12/14/2016 5:43pm Absolute Immature Granulocyte (auto 0.02 T/MM3 0.00-0.03 12/14/2016 5: 37pm 12/14/2016 5:43pm D-Dimer 164 NG/ML 0-230 12/14/2016 5:37pm 12/14/2016 5:58pm <230 NG/ ML D-DU=PRESUMPTIVE NEGATIVE FOR PE OR DVT >230 NG/ML D-DU=ADDITIONAL EVAL FOR PE OR DVT RECOMMENDED Icterus Index < 2 0-7 12/14/2016 5:37pm 12/14/2016 5:59pm Chemistry Specimen Hemolysis < 15 0-25 12/14/2016 5:37pm 12/14/2016 5 :59pm 0-25: Specimen Exhibited No Hemolysis. Turbidity < 20 0-20 12/14/2016 5:37pm 12/14/2016 5:59pm Sodium Level 145 MEQ/L H 134-144 12/14/2016 5:37pm 12/14/2016 5:59pm Potassium Level 4.1 MEQ/L 3.6-5 12/14/2016 5:37pm 12/14/2016 5:59pm Chloride Level 103 MEQ/L 98-107 12/14/2016 5:37pm 12/14/2016 5:59pm Carbon Dioxide Level 30 MEQ/L 22-30 12/14/2016 5:37pm 12/14/2016 5: 59pm Anion Gap 12 MEQ/L 5-15 12/14/2016 5:37pm 12/14/2016 5:59pm Blood Urea Nitrogen 9.0 MG/DL 7-17 12/14/2016 5:37pm 12/14/2016 5:59pm Creatinine 0.5 MG/DL L 0.7-1.2 12/14/2016 5:37pm 12/14/2016 5:59pm BUN/Creatinine Ratio 18 RATIO 6-26 12/14/2016 5:37pm 12/14/2016 5:59pm Glomerular Filtration Rate Calc 136 12/14/2016 5:37pm 12/14/2016 5: 59pm Glucose Level 176 MG/DL H 65-110 12/14/2016 5:37pm 12/14/2016 5:59pm Calculated Osmolality 282 MOSM/KG H 261-280 12/14/2016 5:37pm 2016 5:59pm Calcium Level 9.2 MG/DL 8.4-10.2 12/14/2016 5:37pm 12/14/2016 5:59pm Total Bilirubin 0.50 MG/DL 0.20-1.30 12/14/2016 5:37pm 12/14/2016 5: 59pm Alkaline Phosphatase 63 U/L 38-126 12/14/2016 5:37pm 12/14/2016 5:59pm Total Protein 7.5 G/DL 6.3-8.2 12/14/2016 5:37pm 12/14/2016 5:59pm Albumin 3.9 G/DL 3.5-5.0 12/14/2016 5:37pm 12/14/2016 5:59pm Globulin 3.6 G/DL 2.4-3.6 12/14/2016 5:37pm 12/14/2016 5:59pm Albumin/Globulin Ratio 1.1 RATIO 1.1-2.2 12/14/2016 5:37pm 12/14/2016 5 :59pm Aspartate Amino Transf (AST/SGOT) 15 U/L 14-36 12/14/2016 5:37pm 2016 5:59pm Alanine Aminotransferase (ALT/SGPT) 27 U/L 9-52 12/14/2016 5:37pm 12/14 5:59pm Troponin I < 0.012 ng/ml 0-0.12 12/14/2016 5:37pm 12/14/2016 6:11pm Troponin values with a difference of 55% increase from orginal troponin value represent a true biological DELTA value. (%increase Calc=Orginal Troponin value, divided by subsequent Troponin value, multiplied by 100) DZ-Fle-N-Type Natriuretic Peptide 108 PG/ML 0-175 12/14/2016 5:37pm 06/2017 6:11pm Rule in cut points: <50 years old=450; 50-75 years old=900; >75 years old=1800; When utilizing ProBNP rule-in cut points, adjustment for impaired renal function is typically not required. Magnesium Level 2.0 MG/DL 1.6-2.3 12/14/2016 5:37pm 12/14/2016 5:59pm Thyroid Stimulating Hormone (TSH) 1.38 MIU/L 0.47-4.68 12/14/2016 5: 37pm 12/14/2016 6:29pm Urine Collection Type VOIDED-NOT CC-MIDSTR 12/14/2016 5:50pm 2016 5:54pm Urine Color YELLOW YELLOW 12/14/2016 5:50pm 12/14/2016 5:54pm Urine Turbidity CLEAR CLEAR 12/14/2016 5:50pm 12/14/2016 5:54pm Urine Specific [place] 1.020 1.015-1.025 12/14/2016 5:50pm 2016 5:54pm Urine pH 6.0 5.0-8.0 12/14/2016 5:50pm 12/14/2016 5:54pm Urine Leukocyte Esterase NEGATIVE NEGATIVE 12/14/2016 5:50pm 2016 5:54pm Urine Nitrite NEGATIVE NEGATIVE 12/14/2016 5:50pm 12/14/2016 5:54pm Urine Protein NEGATIVE NEGATIVE 12/14/2016 5:50pm 12/14/2016 5:54pm Urine Glucose (UA) TRACE A NEGATIVE 12/14/2016 5:50pm 12/14/2016 5: 54pm Urine Ketones NEGATIVE NEGATIVE 12/14/2016 5:50pm 12/14/2016 5:54pm Urine Urobilinogen 0.2 EU/DL NORMAL 12/14/2016 5:50pm 12/14/2016 5: 54pm Urine Bilirubin NEGATIVE NEGATIVE 12/14/2016 5:50pm 12/14/2016 5: 54pm Urine Blood NEGATIVE NEGATIVE 12/14/2016 5:50pm 12/14/2016 5:54pm Urinalysis Comment MICROSCOPIC NOT IND. 12/14/2016 5:50pm 2016 5:54pm Procedures No known history of procedures. Encounters Encounter Location Arrival/Admit Date Discharge/Depart Date Attending Provider Departed Emergency Room 12/14/16 5:11pm 12/14/16 8: 03pm SLAVA HARDY MD Registered Clinic 12/02/16 9:05am [facility] ARREGUIN APRN Recent Diagnosis
[2017-01-01 05:54] VITALS: BP 165/78; PULSE 76; RESP 14; TEMP 98; O2SAT 93; Ht 157.5 cm; Wt 129.7 kg
[2017-01-01] MEDS ORDERED: LORA10TA62 (06:12)
[2017-01-01] MEDS ORDERED: GLUC100015 (06:13)
[2017-01-01] MEDS ORDERED: BUPIVACAINE 0.25% (2.5mg/ml) INJ 30ml SDV ONE (06:22)
[2017-01-01] MEDS ORDERED: LIDOCAINE 1% (10mg/ml) 30ml SDV ONE (06:22)
[2017-01-01 06:32] LABS: ANION GAP 11 MEQ/L (5-15); BUN/CREATININE RATIO 26 RATIO (6-26); CALCIUM 8.8 MG/DL (8.4-10.2); CHLORIDE 100 MEQ/L (98-107); CO2 - CARBON DIOXIDE 31 MEQ/L (22-30); CREATININE 0.5 MG/DL (0.7-1.2); GLOMERULAR FILTRATION RATE 136; GLUCOSE 156 MG/DL (65-110); POTASSIUM 4.2 MEQ/L (3.6-5); SODIUM 142 MEQ/L (134-144)
--- NOTE | 2017-01-01 06:59 | ANESPREOP ---
Anesthesia Record Date and Time DATE: 01/01/17 TIME: 06:57 Pre-Op Diagnosis Right Carpal tunnel syndrome Proposed Surgical Procedure RT CTR NPO since: Midnight Allergies: Coded Allergies: Sulfa (Sulfonamide Antibiotics) (Verified Allergy, Unknown, 01/01/17) latex (Verified Allergy, Unknown, 01/01/17) Ht/Wt/BMI Height: 5 ' 2.00 " Weight: 129.700 kg BMI: 52.3 kg/m2 Vital Signs Date Time Temp Pulse Resp B/P Pulse Ox O2 Delivery O2 Flow Rate FiO2 01/01/17 05:54 98.0 76 14 165/78 93 Room Air Medications Inpatient Medications Current Medications Medications (Trade) Dose Ordered Sig/Tami Start Time Stop Time Status Last Admin Dose Admin Lactated Ringer's (Lactated Ringers) 1,000 ml @ 50 mls/hr Q20H 01/01/17 07:00 01/01/17 06:42 50 MLS/HR Acetaminophen (Acetaminophen) 650 Mg Tablet.er, 1,300 MG PO TID PRN for PAIN, ( Reported) Last Taken: on 12/31/16 1600 Citalopram Hydrobromide (Citalopram HBr) 40 Mg Tablet, 40 MG PO DAILY, (Reported) Last Taken: on 01/01/17 040 Glucosamine Sulfate 2Kcl (Glucosamine) 1,000 Mg Tablet, BID, (Reported) Last Taken: on 12/31/16 040 Hum Insulin NPH/Reg Insulin Hm (Novolin 70-30 100 Unit/ml Vial) 100 Unit/Ml Inj, 70 UNIT SQ BIDI, (Reported) Last Taken: on 12/31/16 2100 Levothyroxine Sodium (Levothyroxine Sodium) 75 Mcg Tablet, 75 MCG PO ACB, (Reported) Last Taken: on 01/01/17 040 Lisinopril (Lisinopril) 10 Mg Tablet, 10 MG PO DAILY, (Reported) Last Taken: on 12/31/16399 Loratadine (Claritin) 10 Mg Tablet, DAILY, ( Reported) Last Taken: on 12/31/16 040 Naproxen Sodium (Aleve) 220 Mg Tablet, 440 MG PO BIDWM, (Reported) Last Taken: on 01/01/17 040 [place]-3 Fatty Acids (Fish Oil) 300 Mg Capsule, 1 CAP PO DAILY, (Reported) Last Taken: on 12/24/16 Simvastatin (Simvastatin) 20 Mg Tablet, 20 MG PO DAILY, (Reported) Last Taken: on 12/31/16 0400 Ubidecarenone (Coq-10) 100 Mg Capsule, 100 MG PO DAILY, (Reported) Last Taken: on Unknown Date & Time Currently on Beta Srinivas: No Medical/Surgical History Anesthesia PMH: Reports: *Angina (DECEMBER 21-FLUID OVERLOAD SEE ER VISIT), * Diabetes (type 2), *Hypertension, Arthritis (GENERALIZED ACHES/PAINS; TORN MENISCUS LT KNEE), Obesity, Thyroid Disease, Denies: Anesthesia Reactions, Cancer, Glaucoma, Malignant Hyperthermia, Sleep Apnea Has pt. smoked today?: No Use Chewing Tobacco?: No Second Hand Exposure: No Substance Use Type: does not use Alcohol Intake: none HX of Last Menstrual Period: NOVEMBER 2016 Past Surgical History Orthopedic Surgeries: No Abdominal Surgeries: Yes - lap band, Genitourinary Surgeries: No Cardiac Surgeries: No Endocrine Surgeries: No Reproductive Surgeries: Yes - d&c Neurological Surgeries: No Ear Surgeries: No Nose Surgeries: No Throat Surgeries: No Other Surgeries: Yes - d&c Anesthesia Adverse Reactions: FOUND none Family Hx of Anesthesia Advers: none Hx of Motion Sickness: No Pertinent Findings Laboratory Tests 01/01/17 06:09 Test 01/01/17 06:09 Human Chorionic Gonadotropin, Qual Negative (NEGATIVE) EKG Rhythm: Sinus Rhythm Physical Exam Respiratory: Lungs clear Cardiovascular: FOUND Regular rate, rhythm Airway Assessment Mallampati Score: II TMD: 3 Fingerbreadths Neck Extension: Fair Overall Assessment: No Airway Concerns ASA: 3 Plan Anesthesia Plan: TIVA Discussion Discussed risks/options/alternatives of anesthesia and questions answered. Patient consents. Nursing pain assessment noted. Attestation Statement Prior to the delivery of any anesthetic medication, I examined the patient, developed the plan, obtained the patient's consent and discussed the risk and benefits of the procedure with the patient/guardian. RADHA FERRO [employer] Jan 01, 2017 06:59
[2017-01-01] MEDS ORDERED: LR 1,000 ML IV SCH (07:00)
[2017-01-01] MEDS ORDERED: LIDOCAINE 1% (10mg/ml) 2ml SDV INJ ONE (07:00)
[2017-01-01] MEDS ORDERED: PROPOFOL 500mg 50 ML IV ONE (07:15)
[2017-01-01 07:35] VITALS: BP 99/55; PULSE 83; RESP 16; TEMP 97.4; O2SAT 94
--- NOTE | 2017-01-01 07:48 | PDOPERATE ---
Operative Note Date of Opeation 01/01/17 Preoperative Diagnosis Right carpal tunnel syndrome. Postoperative Diagnosis Right carpal tunnel syndrome. Operation Right carpal tunnel release. Surgeon Jaclyn Moss MD Complications None. Anesthesia TIVA with local. Tourniquet Time Please see Anesthesia Record. Estimated Blood Loss Minimal. Description of Procedure The patient and the operative extremity were identified and marked in the preoperative holding area. The patient was brought back to the operating suite and placed supine on the operating table. The patient was placed under general anesthesia. The right upper extremity was prepped and draped in my normal sterile fashion. A timeout was preformed. The arm was exsanguinated, and the tourniquet was inflated up to 250 mmHg. The incision site was injected with 0.25% Marcaine and 1% Lidocaine. A 2.5 cm incision was made just ulnar to the thenar crease.Sharp dissection was carried down through the skin and subcutaneous fat, down to the palmar fascia and down to the transverse carpal ligament which was then excised under direct visualization, first with a scalpel and then completed both proximally and distally with scissors under direct visualization. The wound was then irrigated , and the incision was closed with a 3-0 nylon in simple interrupted fashion. A sterile soft dressing was placed. The tourniquet was let down. The patient was allowed to awaken from general anesthesia and was taken to the recovery room under the care of Anesthesia. The patient tolerated the procedure well. There were no complications. KENYA MOSS MD Jan 01, 2017 07:48
[2017-01-01 07:49] VITALS: BP 113/57; PULSE 69; RESP 15; O2SAT 95
[2017-01-01] MEDS ORDERED: CEFAZOLIN 1 GRAM INJECTION IV ONE (08:00)
[2017-01-01 08:04] VITALS: BP 110/68; PULSE 68; RESP 20; O2SAT 95
[2017-01-01 08:24] VITALS: BP 108/64; PULSE 65; RESP 10; O2SAT 95
[2017-01-01] MEDS ORDERED: HYDR-3989 PO (08:25)
--- NOTE | 2017-01-01 09:38 | ANESPO ---
Post-Op Note Date 01/01/17 Time: 09:38 Status Pt Participated in Evaluation: Pt participated in person Vital Signs Date Time Temp Pulse Resp B/P Pulse Ox O2 Delivery O2 Flow Rate FiO2 01/01/17 08:24 65 10 108/64 95 Room Air 01/01/17 07:35 97.4 Respiratory Function: Airway patent Cardiovascular Function: Regular pulse Mental Status: Alert/oriented Pain Level Intensity: 0 Hydration: Taking po fluids Complications during Recovery None apparent Follow-Up Instructions Instructions Per Surgeon RADHA FERRO CRNA Jan 01, 2017 09:38
--- NOTE | 2017-01-01 10:24 | NUR ---
Cardiac Multiple communications between myself and [facility] and Dr Moss regarding followup visit with PCP. The decision was made to proceed with Local anesthesia, no cardiac clearance needed. Luz Marina Cunningham RN in [facility] was communicated with throughout the day regarding the progress and decisions.
== END 2017-01-01 09:20 | disposition home or self-care (01) ==
LOC: SCU 05:40
PROVIDERS: ATTEND Orthopaedic Surgery
DX: G56.01 Carpal tunnel syndrome, right upper limb (principal); G56.02 Carpal tunnel syndrome, left upper limb; I10 Essential (primary) hypertension; E78.00 Pure hypercholesterolemia, unspecified; E11.9 Type 2 diabetes mellitus without complications; F32.9 Major depressive disorder, single episode, unspecified; F41.0 Panic disorder [episodic paroxysmal anxiety]; E03.9 Hypothyroidism, unspecified; Z79.899 Other long term (current) drug therapy
CPT/HCPCS: 36415; 80048; 84703